=== PATIENT | male | born 1955 | race Caucasian/White ===

== ENCOUNTER → 2016-07-20 | Outpatient (CLI) | payer OTHER ==
[~2016-07-20] MED LIST: FERR325T OR; TYLENOL #3 OR; VICO5TAB OR; VIT D 2000 PO; VITA100T OR
[2016-07-20 13:32] LABS: CALCIUM OXALATE CRYSTALS SMALL
--- NOTE | 2016-07-20 18:23 | REP ---
KUB, ONE VIEW: HISTORY: Kidney stone. COMPARISON: 05/17/2015 Air is present in the small and large intestine. There are no air fluid levels or dilated loops of intestine. There is no pneumoperitoneum. Calcifications are present in the pelvis. These most likely represent phleboliths. Surgical clips are present. IMPRESSION: 1. Nonspecific bowel gas pattern. 2. There is no definite nephrolithiasis. Unreviewed
[2016-07-21 14:12] LABS: PSA % FREE 26.2 % (.); PSA FREE 1.1 ng/mL; PSA TOTAL 4.2 ng/mL (0.0-4.0)
== END ==
LOC: M SMT 08:33
PROVIDERS: ATTEND Urology
DX: Z12.5 Encounter for screening for malignant neoplasm of prostate (principal); N20.2 Calculus of kidney with calculus of ureter

== ENCOUNTER → 2016-10-02 | Outpatient (CLI) | payer OTHER ==
[~2016-10-02] MED LIST changes: +DOXA1TAB71 PO; +MENSTAB PO; +METO37.5 PO; +VITA200016 PO
[2016-10-02 07:25] LABS: MEAN CORPUSCULAR HEMOGLOBIN 25.8 pg (27.0-33.0); MEAN CORPUSCULAR HGB CONC 31.9 g/dl (32.0-36.5); MEAN CORPUSCULAR VOLUME 80.9 fl (80.0-96.0); RED CELL DISTRIBUTION WIDTH 13.7 % (11.5-14.5); WHITE BLOOD COUNT 6.5 K/mm3 (4.0-10.0)
[2016-10-02 07:54] LABS: ALBUMIN 3.7 GM/DL (3.2-5.2); ALBUMIN/GLOBULIN RATIO 1.28 (1.00-1.93); ALKALINE PHOSPHATASE 74 U/L (45-117); ALT/SGPT 20 U/L (12-78); ANION GAP 9 MEQ/L (8-16); AST/SGOT 12 U/L (15-37); BLOOD UREA NITROGEN 9 MG/DL (7-18); CALCIUM LEVEL 8.5 MG/DL (8.5-10.1); CARBON DIOXIDE LEVEL 24 MEQ/L (21-32); CHLORIDE LEVEL 108 MEQ/L (98-107); CHOLESTEROL LEVEL 181 MG/DL (<200); CREATININE FOR GFR 0.63 MG/DL (0.70-1.30); GLOMERULAR FILTRATION RATE > 60.0 (>56); GLUCOSE, FASTING 91 MG/DL (70-105); SODIUM LEVEL 141 MEQ/L (136-145); TOTAL PROTEIN 6.6 GM/DL (6.4-8.2); TRIGLYCERIDES LEVEL 96 MG/DL (<150)
--- NOTE | 2016-10-02 08:02 | REP ---
PA and lateral chest: Comparison is 06/13/2015. The lung belle are clear. The cardiac size is normal The renard, mediastinum, and bony thorax are unremarkable. Impression: Negative PA and lateral chest. There is no interval change. Signed by Bret Haney MD 10/02/2016 07:53 A
--- NOTE | 2016-10-02 20:25 | ECGEPIP ---
Stationary ECG Study [facility] Test Date: 2016-10-02 Pat Name: MANUEL KELSEY Department: Room: - Gender: M Rn Ccu: PRISCA : 1955 Requested By: Virgil Pressley Order Number: [id number] Reading MD: Moe Gtz Measurements Intervals [place] Rate: 48 P: 37 ME: 173 QRS: 7 QRSD: 106 T: 22 QT: 430 QTc: 385 Interpretive Statements SINUS BRADYCARDIA NONSPECIFIC T-WAVE ABNORMALITY No change from 10/12/15. Electronically Signed On 10-02-2016 20:25:01 EDT by Moe Gtz
== END ==
LOC: M LAB 06:41
PROVIDERS: ATTEND Family Medicine
DX: D64.9 Anemia, unspecified (principal); R53.83 Other fatigue; J44.9 Chronic obstructive pulmonary disease, unspecified

== ENCOUNTER 2016-11-08 10:55 | Outpatient (CLI) | payer OTHER ==
[~2016-11-08] VITALS: Ht 172.7 cm; Wt 89.8 kg
[2016-11-08] MEDS ORDERED: NS 1,000 ML IV ONE (11:15)
[2016-11-08] MEDS ORDERED: LIDOCAINE 2% INJ 100 MG/5 ML SDV (FOR ANES.) As Ordered ONE (12:12)
[2016-11-08] MEDS ORDERED: PROPOFOL 200 MG/20 ML VIAL As Ordered ONE ×2 (12:12→12:17)
--- NOTE | 2016-11-08 12:25 | ROOR ---
Patient Name: Mark Hand Procedure Date: 11/08/2016 12:03 PM Date of : 1955 Age: 61 Room: [facility] Gender: Male Note Status: Finalized Procedure: Colonoscopy Indications: High risk colon cancer surveillance: Personal history of colonic polyps Providers: Karan Talamantes Jr, MD Referring MD: SARAH LOCKETT MD Requesting Provider: Medicines: Propofol per Anesthesia Complications: No immediate complications. Procedure: Pre-Anesthesia Assessment: - Prior to the procedure, a History and Physical was performed, and patient medications and allergies were reviewed. The patient is competent. The risks and benefits of the procedure and the sedation options and risks were discussed with the patient. All questions were answered and informed consent was obtained. Patient identification and proposed procedure were verified by the physician and the nurse in the pre-procedure area and in the procedure room. Mental Status Examination: alert and oriented. Airway Examination: normal oropharyngeal airway and neck mobility. Respiratory Examination: clear to auscultation. CV Examination: normal. ASA Grade Assessment: II - A patient with mild systemic disease. After reviewing the risks and benefits, the patient was deemed in satisfactory condition to undergo the procedure. The anesthesia plan was to use moderate sedation / analgesia (conscious sedation). Immediately prior to administration of medications, the patient was re-assessed for adequacy to receive sedatives. The heart rate, respiratory rate, oxygen saturations, blood pressure, adequacy of pulmonary ventilation, and response to care were monitored throughout the procedure. The physical status of the patient was re-assessed after the procedure. The Colonoscope was introduced through the anus and advanced to the ileocolonic anastomosis. The colonoscopy was performed without difficulty. The patient tolerated the procedure well. The quality of the bowel preparation was adequate and good. Findings: The perianal and digital rectal examinations were normal. Pertinent negatives include normal sphincter tone, no palpable rectal lesions and no anal lesion or abnormality was detected. A medium polyp was found in the sigmoid colon. The polyp was removed with a hot snare. Resection and retrieval were complete. The rectum, recto-sigmoid colon, descending colon, transverse colon, ascending colon and anastomosis appeared normal. Impression: - One medium polyp in the sigmoid colon, removed with a hot snare. Resected and retrieved. - The rectum, recto-sigmoid colon, descending colon, transverse colon, ascending colon and colonic anastomosis are normal. Recommendation: - Discharge patient to home (ambulatory). - Repeat colonoscopy in 5 years for surveillance. Karan Talamantes MD Karan Talamantes Jr, MD 11/08/2016 12:24:54 PM This report has been signed electronically. Number of Addenda: 0 Note Initiated On: 11/08/2016 12:03 PM Estimated Blood Loss: Estimated blood loss: none.
[2016-11-08 12:49] VITALS: BP 166/88
== END 2016-11-08 12:50 | disposition home or self-care (01) ==
LOC: M OPP 10:55
PROVIDERS: ATTEND Surgery
DX: Z12.11 Encounter for screening for malignant neoplasm of colon (principal); D12.5 Benign neoplasm of sigmoid colon; Z98.0 Intestinal bypass and anastomosis status; Z86.010 Personal history of colon polyps; I10 Essential (primary) hypertension; Z87.442 Personal history of urinary calculi; N40.1 Benign prostatic hyperplasia with lower urinary tract symptoms; Z88.5 Allergy status to narcotic agent; Z79.899 Other long term (current) drug therapy; Z87.891 Personal history of nicotine dependence; Z80.51 Family history of malignant neoplasm of kidney

== ENCOUNTER → 2017-02-19 | Outpatient (CLI) | payer OTHER ==
[2017-02-19 07:34] LABS: MEAN CORPUSCULAR HEMOGLOBIN 26.3 pg (27.0-33.0); MEAN CORPUSCULAR HGB CONC 31.7 g/dl (32.0-36.5); MEAN CORPUSCULAR VOLUME 82.9 fl (80.0-96.0); PLATELET COUNT, AUTOMATED 242 10^3/uL (150-450); RED CELL DISTRIBUTION WIDTH 14.3 % (11.5-14.5); WHITE BLOOD COUNT 6.5 10^3/uL (4.0-10.0)
[2017-02-19 08:09] LABS: ALBUMIN 3.8 GM/DL (3.2-5.2); ALBUMIN/GLOBULIN RATIO 1.23 (1.00-1.93); ALKALINE PHOSPHATASE 70 U/L (45-117); ALT/SGPT 19 U/L (12-78); ANION GAP 8 MEQ/L (8-16); AST/SGOT 12 U/L (7-37); BLOOD UREA NITROGEN 8 MG/DL (7-18); CALCIUM LEVEL 8.3 MG/DL (8.5-10.1); CARBON DIOXIDE LEVEL 28 MEQ/L (21-32); CHLORIDE LEVEL 107 MEQ/L (98-107); CHOLESTEROL LEVEL 197 MG/DL (<200); CREATININE FOR GFR 0.65 MG/DL (0.70-1.30); GLOMERULAR FILTRATION RATE > 60.0 (>56); GLUCOSE, FASTING 88 MG/DL (70-105); MAGNESIUM LEVEL 1.8 MG/DL (1.8-2.4); POTASSIUM SERUM 3.9 MEQ/L (3.5-5.1); SODIUM LEVEL 143 MEQ/L (136-145); TOTAL PROTEIN 6.9 GM/DL (6.4-8.2); TRIGLYCERIDES LEVEL 124 MG/DL (<150)
== END ==
LOC: M LAB 06:44
PROVIDERS: ATTEND Family Medicine
DX: R53.83 Other fatigue (principal); N40.0 Benign prostatic hyperplasia without lower urinary tract symptoms; E11.9 Type 2 diabetes mellitus without complications; D64.9 Anemia, unspecified

== ENCOUNTER → 2017-10-29 | Outpatient (CLI) | payer OTHER ==
[2017-10-29 13:45] LABS: ANION GAP 6 MEQ/L (8-16); BLOOD UREA NITROGEN 11 MG/DL (7-18); CALCIUM LEVEL 8.8 MG/DL (8.8-10.2); CARBON DIOXIDE LEVEL 30 MEQ/L (21-32); CHLORIDE LEVEL 108 MEQ/L (98-107); CREATININE FOR GFR 0.69 MG/DL (0.70-1.30); GLOMERULAR FILTRATION RATE > 60.0 (>49); GLUCOSE, FASTING 87 MG/DL (70-100); POTASSIUM SERUM 4.4 MEQ/L (3.5-5.1); SODIUM LEVEL 144 MEQ/L (136-145)
[2017-10-29 14:50] LABS: AMORPHOUS SEDIMENT LARGE (NEGATIVE); APPEARANCE, URINE TURBID (CLEAR); BACTERIA, URINE AUTO NEGATIVE (NEGATIVE); BILIRUBIN, URINE AUTO NEGATIVE (NEGATIVE); BLOOD, URINE BLOOD 3+ (NEGATIVE); COLOR, URINE YELLOW (YELLOW); GLUCOSE, URINE (UA) AUTO NEGATIVE (NEGATIVE); KETONE, URINE AUTO NEGATIVE (NEGATIVE); LEUKOCYTE ESTERASE, URINE AUTO NEGATIVE (NEGATIVE); MUCUS, URINE LARGE (NEGATIVE); NITRITE, URINE AUTO NEGATIVE (NEGATIVE); PROTEIN, URINE AUTO 1+ mg/dL (NEGATIVE); RBC, URINE AUTO 154 /HPF (0-3); SPECIFIC GRAVITY URINE AUTO 1.026 (1.002-1.035); SQUAMOUS EPITHELIAL CELL UR AU 0 /HPF (0-6); UROBILINOGEN, URINE AUTO 0.2 mg/dL (0.0-2.0); WBC, URINE AUTO 2 /HPF (0-3)
[2017-10-30 14:15] LABS: PSA % FREE 21.5 % (.); PSA FREE 0.86 ng/mL
== END ==
LOC: M SMT 08:21
DX: R31.9 Hematuria, unspecified (principal); R97.20 Elevated prostate specific antigen [PSA]

== ENCOUNTER → 2017-11-05 | Outpatient (CLI) | payer OTHER ==
[~2017-11-05] MED LIST changes: -DOXA1TAB71 PO; -FERR325T OR; +ISOVUE-370 76% 100ML VIAL (Q9967) As Ordered; -MENSTAB PO; -METO37.5 PO; -TYLENOL #3 OR; -VICO5TAB OR; -VIT D 2000 PO; -VITA100T OR; -VITA200016 PO
== END ==
LOC: M RAD 15:57
DX: R31.9 Hematuria, unspecified (principal); N20.1 Calculus of ureter; N28.1 Cyst of kidney, acquired; N40.0 Benign prostatic hyperplasia without lower urinary tract symptoms
CPT/HCPCS: Q9967

== ENCOUNTER → 2017-12-03 | Outpatient (CLI) | payer OTHER ==
[2017-12-03 12:55] LABS: HEMOGLOBIN 12.4 g/dl (13.5-17.5); MEAN CORPUSCULAR HEMOGLOBIN 25.9 pg (27.0-33.0); MEAN CORPUSCULAR VOLUME 83.5 fl (80.0-96.0); PLATELET COUNT, AUTOMATED 215 10^3/uL (150-450); RED BLOOD COUNT 4.79 10^6/uL (4.30-6.10); RED CELL DISTRIBUTION WIDTH 14.2 % (11.5-14.5); WHITE BLOOD COUNT 7.1 10^3/uL (4.0-10.0)
[2017-12-03 13:02] LABS: APPEARANCE, URINE CLEAR (CLEAR); BACTERIA, URINE AUTO NEGATIVE (NEGATIVE); BILIRUBIN, URINE AUTO NEGATIVE (NEGATIVE); BLOOD, URINE BLOOD NEGATIVE (NEGATIVE); COLOR, URINE YELLOW (YELLOW); GLUCOSE, URINE (UA) AUTO NEGATIVE (NEGATIVE); KETONE, URINE AUTO TRACE mg/dL (NEGATIVE); LEUKOCYTE ESTERASE, URINE AUTO NEGATIVE (NEGATIVE); MUCUS, URINE SMALL (NEGATIVE); NITRITE, URINE AUTO NEGATIVE (NEGATIVE); PROTEIN, URINE AUTO 1+ mg/dL (NEGATIVE); RBC, URINE AUTO 5 /HPF (0-3); SPECIFIC GRAVITY URINE AUTO 1.018 (1.002-1.035); SQUAMOUS EPITHELIAL CELL UR AU 0 /HPF (0-6); UROBILINOGEN, URINE AUTO 0.2 mg/dL (0.0-2.0); WBC, URINE AUTO 1 /HPF (0-3)
[2017-12-03 13:05] LABS: INR 0.96; PROTHROMBIN TIME 12.9 SECONDS (12.1-14.4)
[2017-12-03 13:06] LABS: PARTIAL THROMBOPLASTIN TIME 26.5 SECONDS (25.4-37.6)
[2017-12-03 13:12] LABS: ANION GAP 9 MEQ/L (8-16); BLOOD UREA NITROGEN 8 MG/DL (7-18); CALCIUM LEVEL 8.5 MG/DL (8.8-10.2); CARBON DIOXIDE LEVEL 26 MEQ/L (21-32); CHLORIDE LEVEL 108 MEQ/L (98-107); CREATININE FOR GFR 0.62 MG/DL (0.70-1.30); GLOMERULAR FILTRATION RATE > 60.0 (>49); GLUCOSE, FASTING 82 MG/DL (70-100); POTASSIUM SERUM 4.1 MEQ/L (3.5-5.1); SODIUM LEVEL 143 MEQ/L (136-145)
== END ==
LOC: M LAB 12:04
DX: Z01.818 Encounter for other preprocedural examination (principal); N20.1 Calculus of ureter

== ENCOUNTER 2017-12-12 13:44 | Day surgery (SDC) | payer OTHER ==
[2017-12-12 14:18] LABS: BEDSIDE GLUCOSE 85 MG/DL (80-115)
[2017-12-12] MEDS: LR 1,000 ML IV (14:26)
[2017-12-12] MEDS ORDERED: MIDAZOLAM INJ 2 MG/2 ML VIAL (J2250) As Ordered (16:41)
[2017-12-12] MEDS ORDERED: fentaNYL 100 MCG/2 ML INJECTION (J3010) As Ordered (16:41)
[2017-12-12] MEDS: CONRAY-60 60% 50ML VIAL (Q9961) As Ordered (17:39)
[2017-12-12] MEDS ORDERED: ONDANSETRON 4MG/2ML VIAL (J2405) As Ordered ×2 (17:45→21:29)
[2017-12-12] MEDS ORDERED: dexameTHASONE 4 MG/ML 1ML VIAL (J1100) As Ordered ×2 (17:45→21:29)
[2017-12-12] MEDS ORDERED: LIDOCAINE 2% INJ 100 MG/5 ML SDV (FOR ANES.) As Ordered ×2 (17:45→21:29)
[2017-12-12] MEDS ORDERED: PROPOFOL 200 MG/20 ML VIAL As Ordered ×2 (17:45→21:29)
[2017-12-12] MEDS ORDERED: KETOROLAC 60 MG/2 ML VIAL (J1885) As Ordered (17:46)
[2017-12-12] MEDS: LABETALOL HCL 100 MG/20 ML VIAL IV ×2 (18:25→18:30)
[2017-12-12] MEDS ORDERED: ONDANSETRON 4MG/2ML VIAL (J2405) IV (18:30)
[2017-12-12] MEDS ORDERED: fentaNYL 100 MCG/2 ML INJECTION (J3010) IV (18:30)
[2017-12-12] MEDS ORDERED: LR 1,000 ML IV (18:30)
[2017-12-12] MEDS ORDERED: PERCOCET 5MG/325MG TAB PO ×2 (18:30)
== END 2017-12-12 19:10 | disposition home or self-care (01) ==
LOC: M SDC 13:44
DX: N20.0 Calculus of kidney (principal); I10 Essential (primary) hypertension; E11.9 Type 2 diabetes mellitus without complications; G47.30 Sleep apnea, unspecified; Z79.82 Long term (current) use of aspirin; Z79.899 Other long term (current) drug therapy; N40.0 Benign prostatic hyperplasia without lower urinary tract symptoms
CPT/HCPCS: 52356

== ENCOUNTER 2017-12-14 06:17 | Emergency (ER) | payer OTHER ==
[2017-12-14 07:26] LABS: BASO # 0.1 10^3/uL (0.0-0.2); BASO % 0.8 % (0.0-1.0); EOS # 0.2 10^3/uL (0.0-0.50); EOS % 2.4 % (0.0-3.0); HEMATOCRIT 38.2 % (42.0-52.0); HEMOGLOBIN 11.8 g/dl (13.5-17.5); IMMATURE GRANULOCYTE % 0.2 % (0-3.0); LYMPH # 2.4 10^3/uL (1.5-4.5); LYMPH % 28.5 % (24.0-44.0); MEAN CORPUSCULAR HEMOGLOBIN 25.8 pg (27.0-33.0); MEAN CORPUSCULAR HGB CONC 30.9 g/dl (32.0-36.5); MEAN CORPUSCULAR VOLUME 83.6 fl (80.0-96.0); MONO # 0.9 10^3/uL (0.0-0.8); MONO % 10.9 % (0.0-5.0); NEUTROPHILS # 4.8 10^3/uL (1.8-7.7); NEUTROPHILS % 57.2 % (36.0-66.0); PLATELET COUNT, AUTOMATED 218 10^3/uL (150-450); RED BLOOD COUNT 4.57 10^6/uL (4.30-6.10); RED CELL DISTRIBUTION WIDTH 14.5 % (11.5-14.5); WHITE BLOOD COUNT 8.5 10^3/uL (4.0-10.0)
[2017-12-14 07:52] LABS: ALBUMIN 3.6 GM/DL (3.2-5.2); ALBUMIN/GLOBULIN RATIO 1.13 (1.00-1.93); ALKALINE PHOSPHATASE 63 U/L (45-117); ALT/SGPT 37 U/L (12-78); ANION GAP 8 MEQ/L (8-16); AST/SGOT 20 U/L (7-37); BILIRUBIN,DIRECT 0.2 MG/DL (0.0-0.2); BILIRUBIN,TOTAL 0.9 MG/DL (0.2-1.0); BLOOD UREA NITROGEN 10 MG/DL (7-18); CALCIUM LEVEL 8.4 MG/DL (8.8-10.2); CARBON DIOXIDE LEVEL 27 MEQ/L (21-32); CHLORIDE LEVEL 108 MEQ/L (98-107); GLOMERULAR FILTRATION RATE > 60.0 (>49); GLUCOSE, FASTING 85 MG/DL (70-100); POTASSIUM SERUM 3.7 MEQ/L (3.5-5.1); SODIUM LEVEL 143 MEQ/L (136-145); TOTAL PROTEIN 6.8 GM/DL (6.4-8.2)
[2017-12-14 08:07] LABS: CK-MB VALUE MASS < 1.0 NG/ML (<3.6); CPK CREATINE PHOSPHOKINASE 61 U/L (39-308); MB/CK RELATIVE INDEX 1.64 (< OR =4); TROPONIN I < 0.02 NG/ML (< 0.10)
[2017-12-14 08:21] LABS: KETONE, URINE AUTO RFX NEGATIVE (NEGATIVE); LEUKOCYTE ESTERASE UR AUTO RFX 1+ (NEGATIVE); NITRITE, URINE AUTO RFX NEGATIVE (NEGATIVE); RBC, URINE AUTO RFX TNTC /HPF (0-3); SQUAM EPITHELIAL CELL UR AURFX 0 /HPF (0-6); WBC, URINE AUTO RFX 7 /HPF (0-3)
[2017-12-14] MEDS ORDERED: amLODIPine 5 MG TAB PO (09:00)
[2017-12-14] MEDS: amLODIPine 10 MG TAB PO (09:18)
[2017-12-14] MEDS: PERCOCET 5MG/325MG TAB PO ×2 (09:18→10:44)
[2017-12-14] MEDS: CAPTOpril 12.5 MG TAB PO (09:19)
== END 2017-12-14 12:15 | disposition home or self-care (01) ==
LOC: M ED 06:17
DX: N13.30 Unspecified hydronephrosis (principal); I10 Essential (primary) hypertension; R00.1 Bradycardia, unspecified; J30.2 Other seasonal allergic rhinitis; Z96.0 Presence of urogenital implants; Z79.82 Long term (current) use of aspirin; Z79.899 Other long term (current) drug therapy; Z88.5 Allergy status to narcotic agent
CPT/HCPCS: 74176

== ENCOUNTER → 2018-09-02 | Outpatient (CLI) | payer OTHER ==
[~2018-09-02] MED LIST changes: +AMLO10TA5 PO; +ASPI81TA26 PO; +CARV3.12 PO; +DITR5TAB PO; +DOXA2TAB3 PO; +FERR325T OR; -ISOVUE-370 76% 100ML VIAL (Q9967) As Ordered; +MENSTAB PO; +METO25TA4 PO; +METO37.5 PO; +PERC5TAB12; +TYLE325T5 PO; +TYLENOL #3 OR; +VICO5TAB OR; +VIT D 2000 PO; +VITA100T OR; +VITA200016 PO
[2018-09-02 07:31] LABS: BLOOD UREA NITROGEN 12 MG/DL (7-18); CALCIUM LEVEL 8.4 MG/DL (8.8-10.2); CARBON DIOXIDE LEVEL 30 MEQ/L (21-32); CHLORIDE LEVEL 107 MEQ/L (98-107); CHOLESTEROL LEVEL 204 MG/DL (<200); CHOLESTEROL RISK RATIO 3.344 (<5); CREATININE FOR GFR 0.81 MG/DL (0.70-1.30); GLOMERULAR FILTRATION RATE > 60.0 (>49); GLUCOSE, FASTING 96 MG/DL (70-100); HDL CHOLESTEROL 61 MG/DL (>40); LDL CHOLESTEROL 115 MG/DL (<100); NON-HDL-C 143 MG/DL; POTASSIUM SERUM 3.5 MEQ/L (3.5-5.1); SODIUM LEVEL 143 MEQ/L (136-145); TRIGLYCERIDES LEVEL 142 MG/DL (<150)
== END ==
LOC: M LAB 06:32
PROVIDERS: ATTEND Internal Medicine Cardiovascular Disease
DX: E78.5 Hyperlipidemia, unspecified (principal); I10 Essential (primary) hypertension

== ENCOUNTER → 2018-10-31 | Outpatient (CLI) | payer OTHER ==
[~2018-10-31] MED LIST changes: +E-Z-GAS II EFFERVESCENT PACKET (SODIUM BICARB./CITRIC ACID/SIMETHICONE) As Ordered ONE; +E-Z-HD 98% w/w 340GM SUSP BTL As Ordered ONE; +E-Z-PAQUE 96% w/w SUSP 176GM BTL As Ordered ONE
--- NOTE | 2018-10-31 16:45 | REP ---
Examination Requested: Upper G.I. Series With KUB Reason For Exam: Gastroesophageal reflux disease peptic ulcer disease Upper GI Air Contrast The procedure was performed by GUSTABO Araujo, under the direct supervision of Dr. King. The images were reviewed with Dr. King. 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 The intestinal gas pattern appears normal. Multiple surgical bella are visualized consistent with the patient's history of cholecystectomy and bowel resection. Liquid barium was given in the erect position as well as liquid barium in the prone oblique position in order to perform an upper GI examination. The oral and pharyngeal stages of deglutition were unremarkable. Esophageal transport is efficient and there is no esophagitis, stricture, or mucosal ring noted. There is no hiatal hernia. Gastroesophageal reflux was not observed throughout the course of the exam. The stomach demonstrates postsurgical changes consistent with the patient's history of Isreal-en-Y gastric bypass . There is free flow of contrast through the anastomosis. There is no evidence of stricture or obstruction. There is no evidence of gastritis, neoplasm, or ulcer disease. The visualized portion of the proximal small bowel appears normal in course and caliber. Impression: 1. Unremarkable upper GI in a patient status post Isreal-en-Y. 0.4 minutes of fluoroscopy time was utilized for this procedure. Some fluoroscopic images are performed with last image hold technology. These images require no additional radiation. Reviewed by GUSTABO Garcia 10/31/2018 04:29 P Electronically Signed by Dustin King DO 10/31/2018 04:36 P
== END ==
LOC: M RAD 07:58
PROVIDERS: ATTEND Family Medicine
DX: K21.9 Gastro-esophageal reflux disease without esophagitis (principal); K27.9 Peptic ulcer, site unspecified, unspecified as acute or chronic, without hemorrhage or perforation; Z98.84 Bariatric surgery status

== ENCOUNTER → 2019-02-07 | Outpatient (CLI) | payer OTHER ==
[~2019-02-07] MED LIST changes: -E-Z-GAS II EFFERVESCENT PACKET (SODIUM BICARB./CITRIC ACID/SIMETHICONE) As Ordered ONE; -E-Z-HD 98% w/w 340GM SUSP BTL As Ordered ONE; -E-Z-PAQUE 96% w/w SUSP 176GM BTL As Ordered ONE
--- NOTE | 2019-02-07 09:12 | REP ---
HISTORY: History of renal calculi. COMPARISON: The latest prior for comparison is 07/20/2016. Surgical clips and bella on the right unchanged. Intestinal gas pattern is nonspecific. The intestinal content obscures the nephric silhouettes. Renal calculi cannot be ruled out. There is no change in the osseous structures. IMPRESSION: Limited exam as described above. Consider stone protocol CT if clinically relevant. Electronically Signed by Dustin King DO 02/07/2019 09:24 A
== END ==
LOC: M RAD 07:54
PROVIDERS: ATTEND Urology
DX: N20.0 Calculus of kidney (principal)

== ENCOUNTER → 2019-02-10 | Outpatient (REF) | payer OTHER ==
[2019-02-10 18:07] LABS: APPEARANCE, URINE CLEAR (CLEAR); BACTERIA, URINE AUTO NEGATIVE (NEGATIVE); BILIRUBIN, URINE AUTO NEGATIVE (NEGATIVE); BLOOD, URINE BLOOD NEGATIVE (NEGATIVE); COLOR, URINE YELLOW (YELLOW); GLUCOSE, URINE (UA) AUTO NEGATIVE (NEGATIVE); KETONE, URINE AUTO NEGATIVE (NEGATIVE); LEUKOCYTE ESTERASE, URINE AUTO NEGATIVE (NEGATIVE); MUCUS, URINE SMALL (NEGATIVE); NITRITE, URINE AUTO NEGATIVE (NEGATIVE); PROTEIN, URINE AUTO NEGATIVE (NEGATIVE); RBC, URINE AUTO 0 /HPF (0-3); SPECIFIC GRAVITY URINE AUTO 1.015 (1.002-1.035); SQUAMOUS EPITHELIAL CELL UR AU 0 /HPF (0-6); UROBILINOGEN, URINE AUTO 0.2 mg/dL (0.0-2.0); WBC, URINE AUTO 2 /HPF (0-3)
== END ==
LOC: M SMT 17:12
PROVIDERS: ATTEND Nurse Practitioner Family
DX: M54.9 Dorsalgia, unspecified (principal)

== ENCOUNTER → 2019-02-18 | Outpatient (CLI) | payer OTHER ==
--- NOTE | 2019-02-18 09:40 | REP ---
Clinical: Right flank pain. Technique: Axial noncontrast images from the lung bases to the pubic symphysis with coronal and sagittal re-formations. Comparison: 12/14/2017. Findings: Kidneys demonstrate symmetric and likely chronic perinephric stranding without hydronephrosis or nephrolithiasis. Subtle bilateral small hypodensities as well as 3.2 cm right lower pole hypodense lesion likely represent renal cysts. Liver, spleen, pancreas, and bilateral adrenal glands are normal. Evidence of prior cholecystectomy and gastric bypass surgery noted. Evidence for prior right hemicolectomy. The enteric system is without obstruction or acute inflammatory process. Few scattered colonic diverticula noted without acute diverticulitis. Pelvis demonstrates enlarged prostate gland with mass effect on the bladder. The bladder is otherwise unremarkable. Small fat containing inguinal hernias noted. No ascites. No free air. No adenopathy. Atherosclerotic changes to the aorta and vasculature without aneurysm. Musculoskeletal structures demonstrate degenerative changes without focal abnormality. Lung bases are clear. Impression: 1. Renal hypodensities likely representing cysts and essentially unchanged. 2. Postsurgical changes without acute abnormality. 3. No acute abdominopelvic pathology appreciated. 4. Prostatomegaly with mass effect on the base of the bladder. 5. Few scattered colonic diverticula without acute diverticulitis. Electronically Signed by Willis Schreiber MD 02/18/2019 09:32 A
== END ==
LOC: M RAD 08:56
PROVIDERS: ATTEND Nurse Practitioner Family
DX: M54.9 Dorsalgia, unspecified (principal); I70.0 Atherosclerosis of aorta; Z98.84 Bariatric surgery status; Z90.49 Acquired absence of other specified parts of digestive tract; K57.90 Diverticulosis of intestine, part unspecified, without perforation or abscess without bleeding; N40.0 Benign prostatic hyperplasia without lower urinary tract symptoms; K40.90 Unilateral inguinal hernia, without obstruction or gangrene, not specified as recurrent

== ENCOUNTER → 2019-03-19 | Outpatient (CLI) | payer OTHER ==
[2019-03-20 14:07] LABS: PSA % FREE 24.3 % (.); PSA FREE 0.97 ng/mL
== END ==
LOC: M LAB 09:25
PROVIDERS: ATTEND Nurse Practitioner Family
DX: R97.20 Elevated prostate specific antigen [PSA] (principal)

== ENCOUNTER → 2020-04-08 | Outpatient (REF) | payer OTHER ==
[~2020-04-08] MED LIST changes: -AMLO10TA5 PO; +AMLO1TAB25 PO
[2020-04-10 06:37] LABS: PSA TOTAL 3.2 ng/mL (0.0-4.0)
== END ==
LOC: M LABSMT 09:59
PROVIDERS: ATTEND Urology
DX: R97.20 Elevated prostate specific antigen [PSA] (principal)

== ENCOUNTER → 2020-09-28 | Outpatient (CLI) | payer OTHER ==
[2020-09-28 08:02] LABS: HEMATOCRIT 37.5 % (42.0-52.0); HEMOGLOBIN 11.8 g/dl (13.5-17.5); MEAN CORPUSCULAR HEMOGLOBIN 26.2 pg (27.0-33.0); MEAN CORPUSCULAR HGB CONC 31.5 g/dl (32.0-36.5); MEAN CORPUSCULAR VOLUME 83.1 fl (80.0-96.0); PLATELET COUNT, AUTOMATED 247 10^3/uL (150-450); RED BLOOD COUNT 4.51 10^6/uL (4.30-6.10)
--- NOTE | 2020-09-28 08:18 | REP ---
INDICATION: HTN, FATIGUE,HYPOTHYROID COMPARISON: 12/03/2017 TECHNIQUE: PA and lateral. FINDINGS: The mediastinum and cardiac silhouette are normal. The lung belle are clear and without acute consolidation, effusion, or pneumothorax. The skeletal structures are intact and normal. IMPRESSION: No acute cardiopulmonary process. <Electronically signed by Willis Schreiber > 09/28/20 0814
[2020-09-28 08:32] LABS: HEMOGLOBIN A1c 6.1 %
[2020-09-28 08:50] LABS: ALBUMIN 3.6 GM/DL (3.2-5.2); ALT/SGPT 45 U/L (12-78); BLOOD UREA NITROGEN 15 MG/DL (7-18); CARBON DIOXIDE LEVEL 29 MEQ/L (21-32); CHLORIDE LEVEL 105 MEQ/L (98-107); CHOLESTEROL LEVEL 143 MG/DL (<200); GLOMERULAR FILTRATION RATE > 60.0 (>49); GLUCOSE, FASTING 98 MG/DL (70-100); HDL CHOLESTEROL 65 MG/DL (>40); LDL CHOLESTEROL 56 MG/DL (<100); NON-HDL-C 78 MG/DL; POTASSIUM SERUM 3.3 MEQ/L (3.5-5.1); PROSTATIC SPECIFIC AG MONITOR 7.02 NG/ML (< 4.00); SODIUM LEVEL 141 MEQ/L (136-145); TRIGLYCERIDES LEVEL 111 MG/DL (<150)
[2020-09-28 09:23] LABS: TESTOSTERONE 653 NG/DL (241-827)
--- NOTE | 2020-09-30 22:20 | ECGEPIP ---
[facility] Test Date: 2020-09-28 Pat Name: MANUEL KELSEY Department: Room: - Gender: Male [place] Crimper: [place] : 1955 Requested By: Virgil Pressley Order Number: [id number] Reading MD: Sim Neumann Measurements Intervals [place] Rate: 58 P: 29 CO: 176 QRS: 13 QRSD: 92 T: 1 QT: 444 QTc: 435 Interpretive Statements Sinus bradycardia Nonspecific ST and T wave abnormality No significant change when compared to prior tracing of December 14, 2017 Electronically Signed on 09-30-2020 22:19:37 EDT by Sim Neumann
== END ==
LOC: M LAB 06:53
PROVIDERS: ATTEND Family Medicine
DX: I10 Essential (primary) hypertension (principal); R53.83 Other fatigue; E03.9 Hypothyroidism, unspecified; R00.1 Bradycardia, unspecified

== ENCOUNTER → 2020-11-16 | Outpatient (CLI) | payer OTHER ==
[2020-11-17 23:09] LABS: PSA % FREE 19.4 % (.); PSA FREE 1.01 ng/mL; PSA TOTAL 5.2 ng/mL (0.0-4.0)
== END ==
LOC: M LAB 07:13
PROVIDERS: ATTEND Urology
DX: R97.20 Elevated prostate specific antigen [PSA] (principal)

== ENCOUNTER → 2021-11-16 | Outpatient (REF) | payer OTHER ==
[2021-11-19 15:06] LABS: PSA % FREE 22.5 % (.); PSA FREE 1.44 ng/mL; PSA TOTAL 6.4 ng/mL (0.0-4.0)
== END ==
LOC: M LABWUC 16:05
PROVIDERS: ATTEND Urology
DX: R97.20 Elevated prostate specific antigen [PSA] (principal)

== ENCOUNTER → 2021-12-07 | Outpatient (CLI) | payer OTHER ==
[2021-12-07 09:41] LABS: HEMATOCRIT 35.3 % (42.0-52.0); HEMOGLOBIN 10.2 g/dl (13.5-17.5); MEAN CORPUSCULAR HEMOGLOBIN 21.9 pg (27.0-33.0); MEAN CORPUSCULAR HGB CONC 28.9 g/dl (32.0-36.5); MEAN CORPUSCULAR VOLUME 75.9 fl (80.0-96.0); PLATELET COUNT, AUTOMATED 265 10^3/uL (150-450); RED BLOOD COUNT 4.65 10^6/uL (4.30-6.10); WHITE BLOOD COUNT 6.1 10^3/uL (4.0-10.0)
[2021-12-07 10:02] LABS: HEMOGLOBIN A1c 6.1 %
[2021-12-07 10:23] LABS: ALBUMIN 3.7 GM/DL (3.2-5.2); ALT/SGPT 28 U/L (12-78); BILIRUBIN,TOTAL 1.1 MG/DL (0.2-1.0); BLOOD UREA NITROGEN 14 MG/DL (7-18); CARBON DIOXIDE LEVEL 32 MEQ/L (21-32); CHLORIDE LEVEL 105 MEQ/L (98-107); CHOLESTEROL LEVEL 133 MG/DL (<200); GLOMERULAR FILTRATION RATE > 60.0 (>49); GLUCOSE, FASTING 94 MG/DL (70-100); HDL CHOLESTEROL 70 MG/DL (>40); LDL CHOLESTEROL 46 MG/DL (<100); NON-HDL-C 63 MG/DL; RHEUMATOID FACTOR QUANT < 10.0 IU/ML (<15.0); SODIUM LEVEL 139 MEQ/L (136-145); TRIGLYCERIDES LEVEL 87 MG/DL (<150); URIC ACID 4.8 MG/DL (3.5-7.2)
[2021-12-07 10:48] LABS: TESTOSTERONE 443 NG/DL (241-827)
== END ==
LOC: M RAD 08:10
PROVIDERS: ATTEND Family Medicine
DX: I10 Essential (primary) hypertension (principal); R53.83 Other fatigue; E03.9 Hypothyroidism, unspecified
CPT/HCPCS: 36415; 71046; 80053; 80061; 83036; 84403; 84443; 84550; 85027; 86431; 93005; G0103

== ENCOUNTER → 2022-01-08 | Outpatient (CLI) | payer OTHER ==
[2022-01-09 23:07] LABS: PSA % FREE 22.2 % (.); PSA FREE 1.29 ng/mL; PSA TOTAL 5.8 ng/mL (0.0-4.0)
== END ==
LOC: M WUC 08:08
PROVIDERS: ATTEND Urology
DX: R97.20 Elevated prostate specific antigen [PSA] (principal)

== ENCOUNTER → 2022-02-22 | Outpatient (CLI) | payer MEDICARE, OTHER ==
[~2022-02-22] MED LIST changes: +ATOR40TA75; +E-Z-GAS II EFFERVESCENT PACKET (SODIUM BICARB./CITRIC ACID/SIMETHICONE) As Ordered ONE; +E-Z-HD 98% w/w 340GM SUSP BTL As Ordered ONE; +E-Z-PAQUE 96% w/w SUSP 176GM BTL As Ordered ONE; +LOSA100T5; +TADA5TAB
[2022-02-22 10:00] LABS: HEMATOCRIT 33.5 % (42.0-52.0); HEMOGLOBIN 9.9 g/dl (13.5-17.5); MEAN CORPUSCULAR HEMOGLOBIN 21.8 pg (27.0-33.0); MEAN CORPUSCULAR HGB CONC 29.6 g/dl (32.0-36.5); MEAN CORPUSCULAR VOLUME 73.8 fl (80.0-96.0); PLATELET COUNT, AUTOMATED 224 10^3/uL (150-450); RED BLOOD COUNT 4.54 10^6/uL (4.30-6.10); WHITE BLOOD COUNT 6.6 10^3/uL (4.0-10.0)
[2022-02-22 10:16] LABS: INR 0.96
== END ==
LOC: M RAD 09:20
PROVIDERS: ATTEND Family Medicine
DX: D64.9 Anemia, unspecified (principal); K27.9 Peptic ulcer, site unspecified, unspecified as acute or chronic, without hemorrhage or perforation; Z98.84 Bariatric surgery status

== ENCOUNTER → 2022-03-13 | Outpatient (CLI) | payer MEDICARE, OTHER ==
[~2022-03-13] MED LIST changes: -E-Z-GAS II EFFERVESCENT PACKET (SODIUM BICARB./CITRIC ACID/SIMETHICONE) As Ordered ONE; -E-Z-HD 98% w/w 340GM SUSP BTL As Ordered ONE; -E-Z-PAQUE 96% w/w SUSP 176GM BTL As Ordered ONE
== END ==
LOC: M LABSMTC 08:50
PROVIDERS: ATTEND Anesthesiology
DX: Z01.818 Encounter for other preprocedural examination (principal)

== ENCOUNTER 2022-03-15 10:56 | Day surgery (SDC) | payer MEDICARE, OTHER ==
[~2022-03-15] VITALS: Ht 172.7 cm; Wt 91.1 kg
[~2022-03-15 10:56] MED LIST changes: +NS 1,000 ML IV ONE
[2022-03-15] MEDS ORDERED: LIDOCAINE 2% 100MG/5ML SDV (FOR ANES.) As Ordered ONE (12:05)
[2022-03-15] MEDS ORDERED: propofoL 200 MG/20 ML VIAL As Ordered ONE ×2 (12:05→12:07)
[2022-03-15 12:48] VITALS: BP 131/79
== END 2022-03-15 12:53 | disposition home or self-care (01) ==
LOC: M OPP 10:56
PROVIDERS: ATTEND Surgery
DX: Z12.11 Encounter for screening for malignant neoplasm of colon (principal); Z86.010 Personal history of colon polyps; K64.2 Third degree hemorrhoids; Z79.02 Long term (current) use of antithrombotics/antiplatelets; Z79.82 Long term (current) use of aspirin; Z79.899 Other long term (current) drug therapy; G47.33 Obstructive sleep apnea (adult) (pediatric); E11.9 Type 2 diabetes mellitus without complications; D64.9 Anemia, unspecified; N40.0 Benign prostatic hyperplasia without lower urinary tract symptoms; I10 Essential (primary) hypertension; Z87.442 Personal history of urinary calculi; Z87.891 Personal history of nicotine dependence; Z95.5 Presence of coronary angioplasty implant and graft; Z90.49 Acquired absence of other specified parts of digestive tract

== ENCOUNTER → 2022-03-26 | Outpatient (CLI) | payer MEDICARE, OTHER ==
[~2022-03-26] MED LIST changes: -NS 1,000 ML IV ONE
== END ==
LOC: M RAD 12:26
PROVIDERS: ATTEND Family Medicine
DX: M47.812 Spondylosis without myelopathy or radiculopathy, cervical region (principal); M25.519 Pain in unspecified shoulder; N40.0 Benign prostatic hyperplasia without lower urinary tract symptoms; M48.02 Spinal stenosis, cervical region; M19.011 Primary osteoarthritis, right shoulder; M19.012 Primary osteoarthritis, left shoulder

== ENCOUNTER → 2022-06-12 | Outpatient (CLI) | payer MEDICARE, OTHER ==
[2022-06-12 11:51] LABS: HEMATOCRIT 43.7 % (42.0-52.0); HEMOGLOBIN 13.1 g/dl (13.5-17.5); MEAN CORPUSCULAR HEMOGLOBIN 24.4 pg (27.0-33.0); MEAN CORPUSCULAR VOLUME 81.5 fl (80.0-96.0); PLATELET COUNT, AUTOMATED 225 10^3/uL (150-450); RED BLOOD COUNT 5.36 10^6/uL (4.30-6.10); WHITE BLOOD COUNT 7.3 10^3/uL (4.0-10.0)
[2022-06-12 12:04] LABS: HEMOGLOBIN A1c 5.8 % (4.0-6.0)
[2022-06-12 12:33] LABS: ALKALINE PHOSPHATASE 66 U/L (46-116); ALT/SGPT 30 U/L (7.0-40); AST/SGOT 25 U/L (<34); BILIRUBIN,TOTAL 1.3 MG/DL (0.3-1.2); BLOOD UREA NITROGEN 11 MG/DL (9-23); CARBON DIOXIDE LEVEL 31 MMOL/L (20-31); CHLORIDE LEVEL 103 MMOL/L (98-107); CHOLESTEROL LEVEL 145 MG/DL (<200); CHOLESTEROL RISK RATIO 2.13 (<5); CREATININE FOR GFR 0.76 MG/DL (0.70-1.30); GLOMERULAR FILTRATION RATE > 60.0 (>49); GLUCOSE, FASTING 84 MG/DL (74-106); LDL CHOLESTEROL 56.2 MG/DL (<100); POTASSIUM SERUM 3.5 MMOL/L (3.5-5.1); SODIUM LEVEL 140 MMOL/L (136-145); TESTOSTERONE 501 NG/DL (241-827); TOTAL PROTEIN 6.8 G/DL (5.7-8.2); TRIGLYCERIDES LEVEL 104 MG/DL (<150)
== END ==
LOC: M PLALAB 06:56
PROVIDERS: ATTEND Family Medicine
DX: I10 Essential (primary) hypertension (principal); R53.83 Other fatigue; E03.9 Hypothyroidism, unspecified
CPT/HCPCS: 36415; 80053; 80061; 83036; 84403; 84443; 85027; G0103

== ENCOUNTER → 2022-08-03 | Outpatient (CLI) | payer MEDICARE, OTHER | LOC: M PLAIMG 07:10 | PROVIDERS: ATTEND Orthopaedic Surgery | DX: M13.811 Other specified arthritis, right shoulder (principal); M67.813 Other specified disorders of tendon, right shoulder; M25.711 Osteophyte, right shoulder; S43.491A Other sprain of right shoulder joint, initial encounter; X58.XXXA Exposure to other specified factors, initial encounter; Y92.9 Unspecified place or not applicable; Y93.9 Activity, unspecified; Y99.9 Unspecified external cause status; R97.20 Elevated prostate specific antigen [PSA] ==

== ENCOUNTER → 2022-08-03 | Outpatient (CLI) | payer MEDICARE, OTHER ==
[2022-08-06 23:07] LABS: PSA % FREE 21.7 % (.); PSA FREE 1.04 ng/mL; PSA TOTAL 4.8 ng/mL (0.0-4.0)
== END ==
LOC: M PLALAB 07:13
PROVIDERS: ATTEND Urology
DX: R97.20 Elevated prostate specific antigen [PSA] (principal)

== ENCOUNTER → 2022-11-15 | Outpatient (CLI) | payer MEDICARE, OTHER ==
[~2022-11-15] MED LIST changes: -DOXA2TAB3 PO; +DOXA2TAB61 PO
[2022-11-15 11:23] LABS: HEMATOCRIT 45.9 % (42.0-52.0); HEMOGLOBIN 14.9 g/dl (13.5-17.5); MEAN CORPUSCULAR HGB CONC 32.5 g/dl (32.0-36.5); MEAN CORPUSCULAR VOLUME 92.5 fl (80.0-96.0); PLATELET COUNT, AUTOMATED 213 10^3/uL (150-450); RED BLOOD COUNT 4.96 10^6/uL (4.30-6.10); WHITE BLOOD COUNT 7.7 10^3/uL (4.0-10.0)
[2022-11-15 11:58] LABS: PROSTATIC SPECIFIC AG MONITOR 5.21 NG/ML (< 4.00); TESTOSTERONE 392 NG/DL (241-827); THYROID STIMULATING HORMONE 2.269 uIU/ML (0.55-4.78)
[2022-11-15 12:00] LABS: HEMOGLOBIN A1c 6.1 % (4.0-6.0)
[2022-11-15 12:07] LABS: ALBUMIN 3.9 G/DL (3.2-5.2); ALKALINE PHOSPHATASE 68 U/L (46-116); ALT/SGPT 42 U/L (7.0-40); AST/SGOT 27 U/L (<34); BILIRUBIN,TOTAL 1.8 MG/DL (0.3-1.2); BLOOD UREA NITROGEN 20 MG/DL (9-23); CALCIUM LEVEL 9.4 MG/DL (8.3-10.6); CARBON DIOXIDE LEVEL 29 MMOL/L (20-31); CHLORIDE LEVEL 102 MMOL/L (98-107); CHOLESTEROL LEVEL 127 MG/DL (<200); CREATININE FOR GFR 0.67 MG/DL (0.70-1.30); GLOMERULAR FILTRATION RATE > 60.0 (>49); GLUCOSE, FASTING 134 MG/DL (74-106); HDL CHOLESTEROL 70.2 MG/DL (>40); LDL CHOLESTEROL 38.2 MG/DL (<100); NON-HDL-C 56.8 MG/DL; POTASSIUM SERUM 3.1 MMOL/L (3.5-5.1); SODIUM LEVEL 141 MMOL/L (136-145); TOTAL PROTEIN 6.9 G/DL (5.7-8.2); TRIGLYCERIDES LEVEL 93 MG/DL (<150)
== END ==
LOC: M PLALAB 07:32
PROVIDERS: ATTEND Family Medicine
DX: I10 Essential (primary) hypertension (principal); R53.83 Other fatigue; E03.9 Hypothyroidism, unspecified

== ENCOUNTER → 2023-01-18 | Outpatient (CLI) | payer MEDICARE, OTHER ==
[2023-01-20 12:07] LABS: PSA % FREE 25.6 % (.); PSA FREE 1.23 ng/mL; PSA TOTAL 4.8 ng/mL (0.0-4.0)
== END ==
LOC: M PLALAB 08:59
PROVIDERS: ATTEND Urology
DX: R97.20 Elevated prostate specific antigen [PSA] (principal)

== ENCOUNTER → 2023-01-23 | Outpatient (REF) | payer MEDICARE, OTHER | LOC: M LAB REF 17:50 | PROVIDERS: ATTEND Physician Assistant | DX: D23.121 Other benign neoplasm of skin of left upper eyelid, including canthus (principal) ==

== ENCOUNTER → 2023-02-06 | Outpatient (CLI) | payer MEDICARE, OTHER | LOC: M SOG 07:53 | PROVIDERS: ATTEND Orthopaedic Surgery | DX: M19.011 Primary osteoarthritis, right shoulder (principal) ==

== ENCOUNTER → 2023-03-20 | Outpatient (CLI) | payer MEDICARE, OTHER ==
[2023-03-20 13:54] LABS: BASO # 0.1 10^3/uL (0.0-0.2); BASO % 1.2 % (0.0-1.0); EOS # 0.2 10^3/uL (0.0-0.5); EOS % 1.9 % (0.0-3.0); HEMATOCRIT 46.8 % (42.0-52.0); HEMOGLOBIN 15.5 g/dl (13.5-17.5); LYMPH # 1.6 10^3/uL (1.5-5.0); LYMPH % 20.5 % (24.0-44.0); MEAN CORPUSCULAR HEMOGLOBIN 30.1 pg (27.0-33.0); MEAN CORPUSCULAR HGB CONC 33.1 g/dl (32.0-36.5); MEAN CORPUSCULAR VOLUME 90.9 fl (80.0-96.0); MONO # 0.7 10^3/uL (0.0-0.8); MONO % 8.6 % (2.0-8.0); NEUTROPHILS # 5.3 10^3/uL (1.5-8.5); NEUTROPHILS % 67.7 % (36.0-66.0); PLATELET COUNT, AUTOMATED 215 10^3/uL (150-450); RED BLOOD COUNT 5.15 10^6/uL (4.30-6.10); WHITE BLOOD COUNT 7.8 10^3/uL (4.0-10.0)
[2023-03-20 13:55] LABS: ALBUMIN 3.9 G/DL (3.2-5.2); ALKALINE PHOSPHATASE 71 U/L (46-116); ALT/SGPT 28 U/L (7.0-40); AST/SGOT 19 U/L (<34); BILIRUBIN,TOTAL 1.4 MG/DL (0.3-1.2); BLOOD UREA NITROGEN 12 MG/DL (9-23); CALCIUM LEVEL 9.1 MG/DL (8.3-10.6); CARBON DIOXIDE LEVEL 28 MMOL/L (20-31); CHLORIDE LEVEL 105 MMOL/L (98-107); GLOMERULAR FILTRATION RATE > 60.0 (>49); GLUCOSE, FASTING 100 MG/DL (74-106); POTASSIUM SERUM 3.4 MMOL/L (3.5-5.1); SODIUM LEVEL 140 MMOL/L (136-145); TOTAL PROTEIN 6.9 G/DL (5.7-8.2)
== END ==
LOC: M PLALAB 09:55
PROVIDERS: ATTEND Internal Medicine Cardiovascular Disease
DX: I25.10 Atherosclerotic heart disease of native coronary artery without angina pectoris (principal)

== ENCOUNTER → 2023-05-31 | Outpatient (CLI) | payer MEDICARE, OTHER ==
[~2023-05-31] MED LIST changes: +ISOVUE-300 61% 100ML VIAL As Ordered ONE; +methylPREDNISolone SUSP 40MG/ML 1ML VIAL (DEPO MEDROL) As Ordered ONE
== END ==
LOC: M RAD 15:05
PROVIDERS: ATTEND Orthopaedic Surgery
DX: M19.011 Primary osteoarthritis, right shoulder (principal)
CPT/HCPCS: 20610; 77002; J0665; J1030; Q9967

== ENCOUNTER → 2023-08-27 | Outpatient (CLI) | payer MEDICARE, OTHER ==
[~2023-08-27] MED LIST changes: -ISOVUE-300 61% 100ML VIAL As Ordered ONE; -methylPREDNISolone SUSP 40MG/ML 1ML VIAL (DEPO MEDROL) As Ordered ONE
[2023-08-27 15:41] LABS: HEMATOCRIT 45.9 % (42.0-52.0); MEAN CORPUSCULAR HEMOGLOBIN 29.6 pg (27.0-33.0); MEAN CORPUSCULAR HGB CONC 32.7 g/dl (32.0-36.5); MEAN CORPUSCULAR VOLUME 90.5 fl (80.0-96.0); PLATELET COUNT, AUTOMATED 202 10^3/uL (150-450); RED BLOOD COUNT 5.07 10^6/uL (4.30-6.10); WHITE BLOOD COUNT 8.3 10^3/uL (4.0-10.0)
[2023-08-27 15:52] LABS: HEMOGLOBIN A1c 5.8 % (4.0-6.0)
[2023-08-27 16:17] LABS: ALBUMIN 4.2 G/DL (3.2-5.2); ALKALINE PHOSPHATASE 81 U/L (46-116); ALT/SGPT 54 U/L (7.0-40); AST/SGOT 32 U/L (<34); BILIRUBIN,TOTAL 1.8 MG/DL (0.3-1.2); BLOOD UREA NITROGEN 12 MG/DL (9-23); CALCIUM LEVEL 9.4 MG/DL (8.3-10.6); CARBON DIOXIDE LEVEL 31 MMOL/L (20-31); CHLORIDE LEVEL 102 MMOL/L (98-107); CHOLESTEROL LEVEL 140 MG/DL (<200); CHOLESTEROL RISK RATIO 2.17 (<5); CREATININE FOR GFR 0.72 MG/DL (0.70-1.30); GLOMERULAR FILTRATION RATE > 60.0 (>49); GLUCOSE, FASTING 91 MG/DL (74-106); HDL CHOLESTEROL 64.5 MG/DL (>40); LDL CHOLESTEROL 52.3 MG/DL (<100); NON-HDL-C 75.5 MG/DL; POTASSIUM SERUM 3.4 MMOL/L (3.5-5.1); SODIUM LEVEL 139 MMOL/L (136-145); TRIGLYCERIDES LEVEL 116 MG/DL (<150)
[2023-08-27 16:18] LABS: THYROID STIMULATING HORMONE 1.734 uIU/ML (0.55-4.78)
[2023-08-27 16:19] LABS: TESTOSTERONE 542 NG/DL (241-827)
== END ==
LOC: M PLALAB 12:10
PROVIDERS: ATTEND Family Medicine
DX: I10 Essential (primary) hypertension (principal); R53.83 Other fatigue; E03.9 Hypothyroidism, unspecified; E78.5 Hyperlipidemia, unspecified; Z79.899 Other long term (current) drug therapy; R97.20 Elevated prostate specific antigen [PSA]

== ENCOUNTER → 2023-08-27 | Outpatient (CLI) | payer MEDICARE, OTHER ==
[2023-08-27 16:05] LABS: CHOLESTEROL RISK RATIO 2.14 (<5); HDL CHOLESTEROL 64.4 MG/DL (>40); LDL CHOLESTEROL 51.8 MG/DL (<100); NON-HDL-C 73.6 MG/DL
== END ==
LOC: M PLALAB 12:11
PROVIDERS: ATTEND Internal Medicine Cardiovascular Disease
DX: E78.5 Hyperlipidemia, unspecified (principal)

== ENCOUNTER → 2024-02-19 | Outpatient (CLI) | payer MEDICARE, OTHER ==
[~2024-02-19] MED LIST changes: -TADA5TAB; +TADA5TAB94
[2024-02-19 18:53] LABS: HEMOGLOBIN 13.7 g/dl (13.5-17.5); MEAN CORPUSCULAR HEMOGLOBIN 27.8 pg (27.0-33.0); MEAN CORPUSCULAR HGB CONC 31.9 g/dl (32.0-36.5); MEAN CORPUSCULAR VOLUME 87.2 fl (80.0-96.0); PLATELET COUNT, AUTOMATED 225 10^3/uL (150-450); RED BLOOD COUNT 4.93 10^6/uL (4.30-6.10); WHITE BLOOD COUNT 7.6 10^3/uL (4.0-10.0)
[2024-02-19 19:14] LABS: PSA SCREENING 6.71 NG/ML (< 4.00)
[2024-02-19 19:18] LABS: ALKALINE PHOSPHATASE 77 U/L (40-129); ALT/SGPT 19 U/L (7.0-40); AST/SGOT 23 U/L (<34); BILIRUBIN,TOTAL 1.7 MG/DL (0.3-1.2); BLOOD UREA NITROGEN 13 MG/DL (9-23); CALCIUM LEVEL 9.3 MG/DL (8.3-10.6); CARBON DIOXIDE LEVEL 31 MMOL/L (20-31); CHLORIDE LEVEL 102 MMOL/L (98-107); CHOLESTEROL LEVEL 122 MG/DL (<200); CHOLESTEROL RISK RATIO 2.26 (<5); CREATININE FOR GFR 0.79 MG/DL (0.70-1.30); GLOMERULAR FILTRATION RATE > 60.0 (>49); GLUCOSE, FASTING 96 MG/DL (74-106); HDL CHOLESTEROL 53.9 MG/DL (>40); LDL CHOLESTEROL 51.7 MG/DL (<100); NON-HDL-C 68.1 MG/DL; POTASSIUM SERUM 3.7 MMOL/L (3.5-5.1); SODIUM LEVEL 141 MMOL/L (136-145); THYROID STIMULATING HORMONE 1.553 uIU/ML (0.55-4.78); TOTAL PROTEIN 7.1 G/DL (5.7-8.2); TRIGLYCERIDES LEVEL 82 MG/DL (<150)
[2024-02-19 19:20] LABS: TESTOSTERONE 435 NG/DL (241-827)
[2024-02-19 19:31] LABS: HEMOGLOBIN A1c 5.9 % (4.0-6.0)
== END ==
LOC: M PLALAB 15:36
PROVIDERS: ATTEND Family Medicine
DX: I10 Essential (primary) hypertension (principal); R53.83 Other fatigue; E03.9 Hypothyroidism, unspecified; Z12.5 Encounter for screening for malignant neoplasm of prostate; Z79.899 Other long term (current) drug therapy
CPT/HCPCS: 36415; 71046; 80053; 80061; 83036; 84403; 84443; 85027; G0103

== ENCOUNTER → 2024-11-13 | Outpatient (CLI) | payer MEDICARE, OTHER ==
[~2024-11-13] MED LIST changes: +TADA5TAB2; -TADA5TAB94
[2024-11-17 14:12] LABS: PSA % FREE 27.0 % (calc) (>25); PSA FREE 2.2 ng/mL; PSA TOTAL 8.1 ng/mL (< OR = 4.0)
== END ==
LOC: M PLALAB 14:13
PROVIDERS: ATTEND Urology
DX: R97.20 Elevated prostate specific antigen [PSA] (principal)

== ENCOUNTER → 2025-01-07 | Outpatient (REF) | payer MEDICARE, OTHER | LOC: M LAB REF 12:34 | PROVIDERS: ATTEND Internal Medicine | DX: M25.50 Pain in unspecified joint (principal) ==

== ENCOUNTER → 2025-02-02 | Outpatient (CLI) | payer MEDICARE, OTHER | LOC: M RAD 09:24 | PROVIDERS: ATTEND Internal Medicine | DX: R18.8 Other ascites (principal); R16.0 Hepatomegaly, not elsewhere classified ==

== ENCOUNTER → 2025-02-05 | Outpatient (CLI) | payer MEDICARE, OTHER ==
[2025-02-08 15:52] LABS: PSA % FREE 23.0 % (calc) (>25); PSA FREE 1.3 ng/mL; PSA TOTAL 5.7 ng/mL (< OR = 4.0)
== END ==
LOC: M PLALAB 09:01
PROVIDERS: ATTEND Urology
DX: R97.20 Elevated prostate specific antigen [PSA] (principal)